=== PATIENT | male | born 1995 | race Caucasian/White ===

== ENCOUNTER 2017-01-27 13:29 | Emergency (ER) | payer OTHER ==
[2017-01-27] MEDS ORDERED: SULFAMETH-TMP DS STARTER PACK 2 TAB BTL PO STA (14:16)
--- NOTE | 2017-01-27 14:27 | ED ---
Skin/Abscess/FB HPI - General Chief complaint: Skin/Abscess/Foreign Body Stated complaint: Abscess-Buttocks Time Seen by Provider: 01/27/17 14:01 Source: patient, RN notes reviewed, old records reviewed Mode of arrival: ambulatory Limitations: no limitations - History of Present Illness Initial comments: This is a 21 year old male with CC of right buttock abscess with for over a week. Patient reports that he was doing warm soak baths. Patient denies any fevers. Patient denies any pain with bowel movements. Patient reports that he has no history of diabetes or immunocompromising illness. Patient states that he has never had MRSA before, and denies any abscesses in this area. - Related Data Previous Rx's Medication Instructions Recorded Sulfamethox-Tmp 800-160Mg [Bactrim 2 tab PO Q12HR #40 tab 01/27/17 DS 800-160 mg] Allergies Allergy/AdvReac Type Severity Reaction Status Date / Time No Known Allergies Allergy Verified 01/27/17 13:49 Review of Systems ROS Statement: Those systems with pertinent positive or pertinent negative responses have been documented in the HPI. ROS Other: All systems not noted in ROS Statement are negative. Past Medical History Past Medical History: No Reported History History of Any Multi-Drug Resistant Organisms: None Reported Additional Past Surgical History / Comment(s): skin surg to remove glass Past Psychological History: No Psychological Hx Reported Smoking Status: Former smoker Past Alcohol Use History: None Reported Past Drug Use History: None Reported General Exam - General Exam Comments Initial Comments: This is a 21 year old male, no acute distress. Limitations: no limitations General appearance: alert, in no apparent distress Head exam: Present: atraumatic, normocephalic, normal inspection Eye exam: Present: normal appearance, PERRL, EOMI. Absent: scleral icterus, conjunctival injection, periorbital swelling ENT exam: Present: normal exam, normal oropharynx, mucous membranes moist Neck exam: Present: normal inspection. Absent: tenderness, meningismus, lymphadenopathy Respiratory exam: Present: normal lung sounds bilaterally. Absent: respiratory distress, wheezes, rales, rhonchi, stridor Cardiovascular Exam: Present: regular rate, normal rhythm, normal heart sounds. Absent: systolic murmur, diastolic murmur, rubs, gallop, clicks GI/Abdominal exam: Present: soft, normal bowel sounds. Absent: distended, tenderness, guarding, rebound, rigid Extremities exam: Present: normal inspection, full ROM, normal capillary refill. Absent: tenderness, pedal edema, joint swelling, calf tenderness Back exam: Present: normal inspection Neurological exam: Present: alert, oriented X3, CN II-XII intact Psychiatric exam: Present: normal affect, normal mood Skin exam: Present: warm, dry, intact, normal color, erythema (erythema over right buttock with focal abscess measuring 4cm by 5cm in center. No evdience or anal sphincter involvement. ). Absent: rash Course Vital Signs 01/27/17 01/27/17 13:46 14:55 Temperature 98.6 F 98.5 F Pulse Rate 99 80 Respiratory 18 20 Rate Blood Pressure 125/88 112/75 O2 Sat by Pulse 95 98 Oximetry Procedures - Incision & Drainage Indication: abscess Site: buttock (right ) Size (cm): 4 Anesthetic Used: lidocaine 1% Amount (mLs): 6 I&D Cleaning Method: Iodine Sterile Field Used?: Yes Scalpel Used: #11 I&D Drainage Obtained: Pus, Blood Culture Obtained?: Yes Complications: pain, bleeding Patient Tolerated Procedure: well, no complications Medical Decision Making - Medical Decision Making This is a 21 year old male with CC of right buttock abscess for 1 week. Patient has an abscess and erythema over right buttock measuring 4cm by 5cm. Patient abscses is not near the rectum. Patient abscess was anesthetized and incised and drained. Culture obtained. Patient would not tolerate packing. Paitent was given BActrim DS starter pack, and will be placed on 2 pills BID for 10 days. Patient advised to do warm soaks, and to follow up with surgeon and PCP. Discussed return if it becomes worse for possible IV antibiotic. Patient agrees to treatment plan and will comply, return parameters discussed. Disposition Clinical Impression: Abscess of right buttock Disposition: HOME SELF-CARE Condition: Good Instructions: Abscess (ED), Incision and Drainage (ED) Additional Instructions: patient advised to do warm soaks in the bathtub. Patient should completely entire antibiotic. Return to the emergency department if the area of redness and swelling becomes worse. Prescriptions: Sulfamethox-Tmp 800-160Mg [Bactrim DS 800-160 mg] 2 tab PO Q12HR #40 tab Referrals: None,Stated [Primary Care Provider] - 1-2 days Dariel White MD [STAFF PHYSICIAN] - 1-2 days Time of Disposition: 14:26
[2017-01-27 14:56] VITALS: BP 112/75; PULSE 80; RESP 20; TEMP 98.5
== END 2017-01-27 14:55 | disposition home or self-care (01) ==
LOC: EC 13:29
DX: L02.31 Cutaneous abscess of buttock (principal); Z87.891 Personal history of nicotine dependence
CPT/HCPCS: 10060; 87070; 87077; 87186; 87205; 99283

== ENCOUNTER 2017-02-10 21:09 | Emergency (ER) | payer OTHER ==
[2017-02-10 21:24] VITALS: RESP 16
[2017-02-10] MEDS ORDERED: predniSONE 20 MG TAB PO STA (21:40)
[2017-02-10] MEDS ORDERED: FAMOTIDINE 20 MG TAB PO STA (21:40)
--- NOTE | 2017-02-10 21:42 | ED ---
Skin/Abscess/FB HPI - General Chief complaint: Skin/Abscess/Foreign Body Stated complaint: Rash Time Seen by Provider: 02/10/17 21:34 Source: patient, RN notes reviewed Mode of arrival: ambulatory Limitations: no limitations - History of Present Illness Initial comments: This a 21-year-old male presents emergency Department chief complaint rash. Patient states she just finished Bactrim. Patient states he didn't for an abscess on his buttocks. Patient states that has resolved. He states he started with a rash last night. He states it is diffuse all over. Denies any difficulty breathing or difficulty swallowing. Patient states never taken Bactrim in the past. - Related Data Home Medications Medication Instructions Recorded Confirmed Sulfamethox-Tmp 800-160Mg [Bactrim 1 tab PO Q12HR 02/10/17 02/10/17 DS 800-160 mg] Previous Rx's Medication Instructions Recorded Famotidine [Pepcid] 20 mg PO BID #28 tablet 02/10/17 diphenhydrAMINE [Benadryl] 50 mg PO QID PRN #20 capsule 02/10/17 predniSONE 50 mg PO DAILY #5 tab 02/10/17 Allergies Allergy/AdvReac Type Severity Reaction Status Date / Time No Known Allergies Allergy Verified 02/10/17 21:35 Review of Systems ROS Statement: Those systems with pertinent positive or pertinent negative responses have been documented in the HPI. ROS Other: All systems not noted in ROS Statement are negative. Past Medical History Past Medical History: No Reported History History of Any Multi-Drug Resistant Organisms: MRSA Date of last positivie culture/infection: 01/27/17 MDRO Source:: BUTTOCK Additional Past Surgical History / Comment(s): skin surg to remove glass. boil lanced right buttocks. Past Psychological History: No Psychological Hx Reported Smoking Status: Former smoker Past Alcohol Use History: None Reported Past Drug Use History: None Reported General Exam Limitations: no limitations General appearance: alert, in no apparent distress Head exam: Present: atraumatic, normocephalic, normal inspection Eye exam: Present: normal appearance, PERRL, EOMI. Absent: scleral icterus, conjunctival injection, periorbital swelling ENT exam: Present: normal exam, normal oropharynx, mucous membranes moist Neck exam: Present: normal inspection, full ROM. Absent: tenderness, meningismus, lymphadenopathy Respiratory exam: Present: normal lung sounds bilaterally. Absent: respiratory distress, wheezes, rales, rhonchi, stridor Cardiovascular Exam: Present: regular rate, normal rhythm, normal heart sounds. Absent: systolic murmur, diastolic murmur, rubs, gallop, clicks Skin exam: Present: warm, dry, intact, normal color, rash (Diffuse macular rash) , urticaria Course Vital Signs 02/10/17 21:20 Temperature 98.6 F Pulse Rate 113 H Respiratory 16 Rate Blood Pressure 139/81 O2 Sat by Pulse 98 Oximetry Medical Decision Making - Medical Decision Making 21-year-old male present emergency from for ALLERGIC reaction. Patient had ALLERGIC reaction to Bactrim. Patient is no acute distress. This is secondary sulfa ALLERGY. Patient be discharged he has completed his course antibiotics and advised not to take sulfa in the future. Disposition Clinical Impression: Drug reaction Disposition: HOME SELF-CARE Condition: Stable Instructions: Antibiotic Medication Allergy (ED) Additional Instructions: Please return to the Emergency Department if symptoms worsen or any other concerns. Prescriptions: diphenhydrAMINE [Benadryl] 50 mg PO QID PRN #20 capsule PRN Reason: Allergic Reaction Famotidine [Pepcid] 20 mg PO BID #28 tablet predniSONE 50 mg PO DAILY #5 tab Referrals: None,Stated [Primary Care Provider] - 1-2 days Time of Disposition: 21:42
[2017-02-10 22:00] VITALS: BP 133/79; PULSE 89; TEMP 98.4
== END 2017-02-10 21:58 | disposition home or self-care (01) ==
LOC: EC 21:09
DX: L27.0 Generalized skin eruption due to drugs and medicaments taken internally (principal); T37.0X5A Adverse effect of sulfonamides, initial encounter; Z86.14 Personal history of Methicillin resistant Staphylococcus aureus infection; Z87.891 Personal history of nicotine dependence
CPT/HCPCS: 99282 ×2; J7512

== ENCOUNTER → 2018-02-26 | Outpatient (CLI) | payer OTHER ==
--- NOTE | 2018-02-26 17:17 | XR ---
Lumbosacral spine HISTORY: Low back pain 5 views of the lumbosacral spine There is no evident spondylolysis or spondylolisthesis. Lumbar vertebral bodies show preserved height , alignment, and bone mineralization. Disc spaces are maintained. IMPRESSION: No significant abnormality. MRI may be of benefit.
== END ==
LOC: RADXRMAIN 16:26
PROVIDERS: ATTEND Internal Medicine
DX: M54.5 Low back pain (principal)
CPT/HCPCS: 72110